=== PATIENT | female | born 2000 | race Two or more races ===

== ENCOUNTER 2024-06-06 08:48 | Day surgery (SDC) | payer MEDICAID, SELFPAY ==
[2024-06-06] VITALS (7 sets, daily range): BP systolic 93–135; BP diastolic 53–88; PULSE 67–87; RESP 13–20; TEMP 36.6–36.9; O2SAT 98–100; BMI 30.2
--- NOTE | 2024-06-06 09:00 | XR_ITS ---
Examination: Complete OB ultrasound, less than 14 weeks, transabdominal Date and time of exam: June 06, 2024 1012 hours INDICATIONS: Pelvic cramping vaginal bleeding beginning 2 days ago Technique: Obstetrical ultrasound images less than 14 weeks performed via transabdominal imaging Findings: Uterus 11.2 cm Irregular intrauterine gestational sac pole 1.5 cm corresponds to 7 week 6 day gestational age No cardiac motion No movement, no yolk sac Ovaries obscured by bowel gas IMPRESSION: Findings most consistent with embryonic demise, recommend short-term follow-up as clinically warranted
--- NOTE | 2024-06-06 09:00 | PD.EDVAGBL ---
ED OB Contraction Preg RMI/HPI General Chief complaint: Vaginal Bleeding Stated complaint: 13 weeks OB, vaginal bleeding X 2 days Time Seen by Provider: 06/06/24 08:51 Arrival date/time: 06/06/24 08:48 23-year-old female approximately 13 weeks presents to the emergency department complains of vaginal bleeding x 2 days patient reports being 2 para 1 A0 Limitations: no limitations Related Data Home Medications ?Medication ?Instructions ?Recorded ?Confirmed [id number] 1 mg 1 tab PO QDAY 03/16/20 03/16/20 tablet Allergies Allergy/AdvReac Type Severity Reaction Status Date / Time No Known Allergies Allergy Verified 06/06/24 08:52 Review of Systems Review of Systems Systems Reviewed: All systems reviewed, normal except as documented Constitutional Constitutional: Reports system reviewed and no additional complaints, except as documented, Denies fever(s) and Denies headache(s) Eyes Eyes: Reports system reviewed and no additional complaints, except as documented and Denies blurry vision ENT Ears, Nose, Mouth, and Throat: Reports system reviewed and no additional complaints, except as documented, Denies headache(s), Denies nasal congestion and Denies nasal discharge Cardiovascular Cardiovascular: Reports system reviewed and no additional complaints, except as documented, Denies chest pain and Denies dyspnea Respiratory Respiratory: Reports system reviewed and no additional complaints, except as documented, Denies chest congestion, Denies cough and Denies dyspnea Gastrointestinal Gastrointestinal: Reports system reviewed and no additional complaints, except as documented and Denies abdominal pain Genitourinary Genitourinary: Reports system reviewed and no additional complaints, except as documented, Reports abnormal vaginal bleeding and Reports pelvic pain Integumentary/Breasts Skin/Breast: Reports system reviewed and no additional complaints, except as documented and Denies rash Neurologic Neurologic: Reports system reviewed and no additional complaints, except as documented, Reports as per HPI and Denies headache(s) Past Medical History Past Medical History NEUROLOGIC: Negative Neurological Disorders CARDIAC: Negative Cardiac Disorders or Congestive Heart Failure RESPIRATORY: Negative Chronic Obstructive Pulmonary Disease (COPD) GASTROINTESTINAL: Negative Gastrointestinal Disorders, Hepatitis or Colorectal Cancer GENITOURINARY: Negative Genitourinary Disorders or Renal Disease REPRODUCTIVE: Positive Previous Pregnancies (X1 PREG); Negative Breast Cancer MUSCULOSKELETAL: Negative Musculoskeletal Disorders or Bone Cancer ENDOCRINE: Negative Endocrine Disorders, Diabetes Mellitus Type 1 or Diabetes Mellitus Type 2 HEMATOLOGIC: Positive Blood Disorders and Anemia OTHER HISTORY: Negative Hospitalization, Autoimmune Disease, Down Syndrome, Developmental Delay, Shingles, Falls, Blood Transfusions, Blood Transfusion Reaction, Anesthesia Reactions, Organ Transplant, Chemotherapy, Radiation Therapy, Hyperbaric Therapy, MRSA, VRSA, Vancomycin-Resistant Enterococci, Human Immunodeficiency Virus (HIV), Chicken Pox, Measles, Mumps, Rubella (Hungarian Measles), Pertussis, Clostridium Difficile, Cancer, Breast Cancer, Cervical Cancer, Colorectal Cancer, Lung Cancer or Ovarian Cancer Family History FAMILY HISTORY: Positive Family Cardiac Disorders (HEART DISEASE- MAT GMA); Negative Family Psychiatric Problems, Family Respiratory Disorders, Family Gastrointestinal Problems, Family Cancer, Family Surgery or Family Anesthesia Reaction Surgical History SURGICAL: Negative Section or Organ Transplant Social History SMOKING STATUS: Never smoker ED Exam General Limitations: Present no limitations General appearance: Present alert and in no apparent distress Head Head exam: Present atraumatic, normocephalic and normal inspection Eye Eye exam: Present normal appearance, PERRL and EOMI; Absent conjunctival injection ENT ENT exam: Present normal exam, normal oropharynx and mucous membranes moist Neck Neck exam: Present normal inspection, full ROM and trachea midline Chest Chest inspection: Present normal inspection and symmetric chest wall rise Respiratory Respiratory exam: Present normal lung sounds bilaterally; Absent respiratory distress or wheezes Cardiovascular Cardiovascular exam: Present regular rate, normal rhythm and normal heart sounds Abdominal Exam Abdominal exam: Present soft and normal bowel sounds; Absent distention, tenderness, guarding, rebound or rigidity Extremities Exam Extremities exam: Present normal inspection and full ROM Back Exam Back exam: Present normal inspection and full ROM Neurological Exam Neurological exam: Present alert, oriented X3, CN II-XII intact, normal gait and reflexes normal; Absent motor sensory deficit Psychiatric Psychiatric exam: Present normal affect and normal mood Skin Skin exam: Present warm, dry, intact and normal color; Absent rash Course Quality Measures none Orders Category Date Time Status Patient Condition Routine Admission 06/06/[address] in Surgical Day Care Routine Admission 06/06/24 11:45 Active Apply HAMIDA Barba NOW Care 06/06/24 12:00 Active COVID-19 Screening Questionnaire NOW Care 06/06/24 11:39 Active Consent [Obtain Written Consent For:] .NOW Care 06/06/24 11:47 Active Decision to Admit X1 Care 06/06/24 11:38 Active Insert IV NOW Care 06/06/24 11:39 Active NPO NOW Care 06/06/24 11:59 Active NPO NOW Care 06/06/24 12:00 Active SCD [Sequential Compression Device] NOW Care 06/06/24 12:00 Active Consult to Gynecology Stat Cons 06/06/24 11:39 Ordered Diet NPO (NOW) Diet 06/06/24 11:59 Completed Diet NPO (NOW) Diet 06/06/24 12:00 Active US OB <= 14 weeks fetus Stat Exams 06/06/24 09:00 Completed ABO/RH Type Stat Lab 06/06/24 09:45 Completed Beta HCG,Quantitative Stat Lab 06/06/24 09:45 Completed CBC Stat Lab 06/06/24 09:45 Completed Comprehensive Metabolic Panel Stat Lab 06/06/24 09:45 Completed Ringers Lactated 1000 ml [Lactated Ringers] 1,000 ml Med 06/06/24 12:00 Active IV 30 mls/hr Code Status Routine Oth 06/06/24 11:46 Ordered Vital Signs Vital signs: Vital Signs Temperature 98.5 F 06/06/24 08:55 Pulse Rate 87 06/06/24 08:55 Respiratory Rate 16 06/06/24 08:55 Blood Pressure 135/88 H 06/06/24 08:55 Pulse Oximetry (%) 98 06/06/24 08:55 Oxygen Delivery Method Room Air 06/06/24 08:55 O2 saturation 98% room air within the limits Vaginal Bleeding MDM Narrative MDM Narrative: 23-year-old female approximately 13 weeks presents to the emergency department complains of vaginal bleeding x 2 days patient reports being 2 para 1 A0 On exam patient well-appearing patient does not appear ill or toxic patient does not appear in acute distress Lab work as well as ultrasound obtained Ultrasound consistent with demise Consultation: I spoke with Dr. Drew COOK PRESSURE who states he will come evaluate the patient for D&C At the time of admission patient is no distress Patient data External records reviewed:: [facility] previous records Clinical information provided by:: patient Social determinants that could affect healthcare access:: none Patient has the following chronic illnesses:: None How is presenting disease/condition affected by chronic disease/condition?: no chronic disease Evaluation data The following diagnostics were reviewed and interpreted by me:: lab results and radiology exam(s) Lab and/or radiology exams considered but not ordered:: Labs radiology obtain Interpretation Summary: By me Medications / Prescriptions Medications or Prescriptions considered but not ordered:: No meds Medication administrations:: Medication Administration History Lactated Ringer's (Lactated Ringers) 1,000 mls @ 30 mls/hr IV .Q24H IAM Stop: 07/06/24 11:59 No meds Consultations Consultation(s) initiated? (list below): No Diagnosis Vaginal Bleeding Differential Diagnosis: missed and threatened Most likely diagnosis given after review of the tests above:: Missed Admission Indicated Admission indicated?: not indicated Admission Request Was there a request for admission?: No Disposition Plan Disposition Plan: Discharge Discharge Attestation Discharge Attestation: The patient and all family members were given an opportunity to ask questions and understood the discharge instructions. Discharge instructions specifically effects, indications for sooner follow up or return to the emergency department, and the expected course of current diagnosis. Patient condition: Stable Discharge Plan Plan Patient Disposition: Admit Acute Care w/in Hospital Disposition Comment: Stable Prescriptions/Referrals Prescriptions/Med Rec: No Action 1 mg Tablet 1 tab PO QDAY Referrals: No Primary/Family,Physician [Primary Care Provider] - In 1 week Problem List Clinical Impression: Incomplete Patient/Caregiver Discharge Instructions Print Language: Armenian Stand Alone Forms: Molly Award Info., Patient Portal Info Letter PA/INFORMATION TECHNOLOGY PROGRAM MANAGER Supervising Physician PA/INFORMATION TECHNOLOGY PROGRAM MANAGER Supervising Physician: Dr [email or web address]
[2024-06-06 10:08] LABS: Basophils % (Auto) 0 % (0-2.5); Eosinophils % (Auto) 0 % (0-10); Immature Granulocytes % (Auto) 0 % (0-0); Immature Granulocytes Auto 0.03 Thou/mm3 (0.00-0.00); Lymphocytes # (Auto) 1.9 Thou/mm3 (1.0-4.8); Lymphocytes % (Auto) 17 % (10-50); Mean Corpuscular Hemoglobin 30.6 pg (25.0-35.0); Mean Corpuscular Volume 87 fL (80-100); Monocytes # (Auto) 0.5 Thou/mm3 (0.0-0.8); Monocytes % (Auto) 4 % (0-12); Neutrophils # (Auto) 8.9 Thou/mm3 (1.8-7.7); Neutrophils % (Auto) 78 % (37-80); Nucleated Red Blood Cell % 0 /100 WBC (0); Platelet Count 259 Thou/mm3 (140-440); RDW Standard Deviation 41.8 fL (36.4-46.3); Red Blood Count 4.58 Miln/mm3 (4.00-5.20); White Blood Count 11.4 Thou/mm3 (3.6-11.0)
[2024-06-06 10:25] LABS: Alanine Aminotransferase 10 U/L (10-49); Albumin, Serum 4.8 gm/dL (3.5-5.0); Albumin/Globulin Ratio 1.7 (1.2-2.2); Alkaline Phosphatase 55 U/L (46-116); Anion Gap 10 (7-16); Aspartate Amino Transferase 15 U/L (0-34); BUN/Creatinine Ratio 13 Ratio (12-20); Bilirubin,Total 0.6 mg/dL (0.3-1.2); Blood Urea Nitrogen 9 mg/dL (9-23); Calcium 9.7 mg/dL (8.3-10.6); Calcium (Corrected) 9.7 mg/dL (8.5-10.1); Carbon Dioxide 23.3 mMol/L (20.0-31.0); Chloride 104 mMol/L (98-107); Creatinine (Component) 0.7 mg/dL (0.6-1.3); Estimated Creatinine Clearance 118.4 mL/min (>60); Globulin 2.9 gm/dL (2.3-3.5); Glucose 93 mg/dL (74-106); Osmolality,Calculated 272 (275-295); Sodium 137 mMol/L (136-145); Total Protein 7.7 gm/dL (5.7-8.2); eGFR > 60 See Note
[2024-06-06 11:04] LABS: Beta HCG,Quantitative 9858 mIU/mL (<5.0)
[2024-06-06] MEDS: RINGERS LACTATED 1000 ML 1,000 ML 30 ML IV (12:27)
--- NOTE | 2024-06-06 12:32 | ESHP_ITS ---
RE: JOSE KIM : 2000 DATE OF ADMISSION: 06/06/2024 HISTORY OF PRESENT ILLNESS: The patient is 2, para 1-0-0-1 who presents to the emergency room complaining of vaginal bleeding. A pelvic ultrasound reveals a nonviable IUP with a crown-rump length of 1.5 cm and no cardiac activity seen. The patient also reports crampy abdominal pain and passing clots. ALLERGIES: NO KNOWN DRUG ALLERGIES. MEDICATIONS: multivitamin 1 p.o. daily. PAST MEDICAL HISTORY: Pilonidal cyst, gallstones, childbirth, gestational hypertension. PAST SURGICAL HISTORY: Cholecystectomy, pilonidal cyst abscess incision and drainage. OBSTETRIC HISTORY: Full-term normal vaginal delivery in 02/2020, 38-week gestation complicated by gestational hypertension. FAMILY HISTORY: Denies. REVIEW OF SYSTEMS: She denies any chest pain, palpitations, cough, fever, shortness of breath, or lower extremity pain. PHYSICAL EXAMINATION: VITAL SIGNS: Blood pressure 135/88, heart rate 87, respirations 16, temperature is 98.5, pulse ox is 98% on room air. HEENT: Oropharynx and sclerae are clear. LUNGS: Clear to auscultation bilaterally. HEART: Regular rate and rhythm. ABDOMEN: Nontender. EXTREMITIES: Nontender. SKIN: No gross rashes or lesions. NEUROLOGIC: No focal deficit. ASSESSMENT: Incomplete at 7 weeks and 6 days. PLAN: Suction dilatation and curettage. Informed consent was obtained. The patient was made aware of the risks, complications, alternatives, benefits of the proposed procedure, and she agrees. She is aware of the risk of uterine perforation, injury to bladder, bowel, adjacent organs, pelvic infection, emergency laparotomy to repair bleeding or organ perforation, anesthesia complications, blood clots in the deep veins of the legs and lungs, and she is aware of the risk of expectant management options with possibility of discharge home and expectant management with spontaneous passage at home. DT: 11:44:51 TT: 12:31:00 Ref: [id number] - TID: [id number] MTDD
--- NOTE | 2024-06-06 15:04 | SUR.PHASEI ---
1501 Patient arrived to recovery resting comfortably [facility], on oxygen 8L via oxy mask with an oral airway in place, breathing unlabored, vital signs stable, dressing intact to vaginal area; peripad, no bleeding noted, lung sounds clear upon auscultation, bilateral radial pulses present when palpated, report received from Dr. Rene and Chet MILLS
--- NOTE | 2024-06-06 16:01 | SUR.PHASEII ---
1601 Patient meets discharge criteria from recovery, awake and alert, breathing unlabored, vital signs stable, denies pain, dressing intact; no bleeding noted, patient drinking apple juice; tolerating well, denies nausea, patient assisted with dressing into her clothing by her , discharge instructions given to patient and patients , signed discharge instructions. Patient given all her belongings prior to discharge, transported via wheelchair and left in a private vehicle.
--- NOTE | 2024-06-06 18:00 | ESOP_ITS ---
RE: JOSE KIM : 2000 DATE OF OPERATION: 06/06/2024 PREOPERATIVE DIAGNOSIS: Incomplete at 7 weeks gestation. POSTOPERATIVE DIAGNOSIS: Incomplete at 7 weeks gestation PROCEDURE PERFORMED: Suction dilatation and curettage SURGEON: Mike Drew DO MEDICAL ASSISTANT INSTRUCTOR: None. ANESTHESIA: General. ANESTHESIOLOGIST: Dr. Rene ESTIMATED BLOOD LOSS: 100 mL COMPLICATIONS: None. COUNTS: Correct. PATHOLOGY: Products of conception. FINDINGS: Uterus sounds to 10 cm anteverted. Cervix dilated 5 mm. Products of conception at the os. DESCRIPTION OF PROCEDURE: After proper informed consent was obtained, the patient was made aware of the risks, complications, alternatives, benefits of the proposed procedure. She was taken to the operating room where she underwent induction of general anesthesia. She was placed in the dorsal lithotomy position. She was prepped and draped in the usual sterile fashion. A timeout was performed. A speculum was placed in the vagina. A single-tooth tenaculum was used to grasp the anterior lip of the cervix. The uterus was sounded to 10 cm. The cervix was dilated to accommodate the 12 mm suction curette. The suction curette was then utilized to curette the uterine cavity and obtain products of conception. A sharp curette followed to curette the uterine cavity in all four quadrants and no additional products of conception were obtained. It was followed again by a suction curette and no additional products of conception were obtained. There was no bleeding at the end of the procedure. She received Pitocin, Methergine and TXA. All instruments were removed from the vagina. She was reversed from general anesthesia in the supine position and transferred to the recovery room in stable condition. She tolerated the procedure well. All counts were correct. I discussed with the patient's the nature of her condition, intraoperative findings, expectation for recovery. All questions answered. DT: 15:09:45 TT: 17:58:00 Ref: [id number] - TID: [id number]
== END 2024-06-06 16:01 | disposition home or self-care (01) ==
LOC: SERX 12:09 → S2EX 12:19
PROVIDERS: Nurse Practitioner Primary Care; Emergency Provider Emergency Medicine; Referring Provider Specialist; Visit Provider Specialist
PROC: (CPT 58120; principal; 2024-06-06 16:00)
DX: O03.4 Incomplete spontaneous abortion without complication (principal); O09.291 Supervision of pregnancy with other poor reproductive or obstetric history, first trimester; O24.111 Pre-existing type 2 diabetes mellitus, in pregnancy, first trimester; Z3A.13 13 weeks gestation of pregnancy; O13.9 Gestational [pregnancy-induced] hypertension without significant proteinuria, unspecified trimester
CPT/HCPCS: 59812; 36415; 76801; 80053; 84702; 85025; 86900; 86901; 99285; A4217; J0690; J1100; J1885; J2210; J2250; J2405; J2704; J3010; J3490; J7120